=== PATIENT | female | born 1960 | race African-American/Black ===

== ENCOUNTER 2019-02-09 17:29 | Emergency (ER) | payer SELFPAY ==
--- NOTE | 2019-02-09 17:44 | PDOC ---
Rapid Medical Evaluation Time Seen by Provider: 02/09/19 17:38 Medical Evaluation: 02/09/19 17:39 I have performed a brief in-person evaluation of this patient. The patient presents with a chief complaint of: S/p slip and fall on wet floor in [employer] today, fell onto R side, no head injury or LOC. No back/hip pain. Ambulatory since fall. Not on blood thinners. Pertinent physical exam findings:LROM to RUE 2/2 pain I have ordered the following:XR shoulder/hand/wrist The patient will proceed to the ED for further evaluation. Discharge Disposition - Diagnosis Fall Qualifiers: Encounter type: initial encounter Qualified Code(s): W19.XXXA - Unspecified fall, initial encounter - Referrals - Patient Instructions - Post Discharge Activity
[2019-02-09 17:56] VITALS: BP 152/90; PULSE 94; TEMP 98.4; BMI 26.4
[2019-02-09] MEDS ORDERED: CYCLOBENZAPRINE HCL 10 MG TABLET (FP) PO ONE (18:06)
[2019-02-09] MEDS ORDERED: KETOROLAC TROMETHAMINE 60 MG/2 ML VIAL IM ONE (18:06)
[2019-02-09] MEDS ORDERED: KETOROLAC TROMETHAMINE 60 MG/2 ML VIAL ONE (18:12)
[2019-02-09] MEDS ORDERED: CYCLOBENZAPRINE HCL 10 MG TABLET (FP) ONE (18:13)
--- NOTE | 2019-02-09 18:24 | PDOC ---
History of Present Illness - General Chief Complaint: Injury Stated Complaint: FALL Time Seen by Provider: 02/09/19 17:38 History Source: Patient Exam Limitations: No Limitations Past History - Past Medical History Allergies/Adverse Reactions: Allergies Allergy/AdvReac Type Severity Reaction Status Date / Time No Known Allergies Allergy Verified 02/09/19 17:59 Home Medications: Ambulatory Orders Cyclobenzaprine HCl [Flexeril 10 mg] 10 mg PO TID PRN #21 tablet 02/09/19 COPD: No - Immunization History Immunization Up to Date: No - Suicide/Smoking/Psychosocial Hx Smoking History: Never smoked Have you smoked in the past 12 months: No Information on smoking cessation initiated: No Hx Alcohol Use: No Drug/Substance Use Hx: No *Physical Exam - Vital Signs Last Vital Signs Temp Pulse Resp BP Pulse Ox 98.4 F 94 H 16 152/90 99 02/09/19 17:41 02/09/19 17:41 02/09/19 17:41 02/09/19 17:41 02/09/19 17:41 - Physical Exam General Appearance: No: Apparent Distress HEENT: positive: Other (no head trauma) Neck: positive: Other (+TTP along R trapezius). negative: Tender midline Respiratory/Chest: positive: Lungs Clear, Normal Breath Sounds. negative: Respiratory Distress Cardiovascular: positive: Regular Rhythm, Regular Rate, S1, S2. negative: Murmur Extremity: positive: Other (decreased ROM of R shoulder, also limiting movement of rest of her RUE; no swelling, no ecchymosis, no joint deformity, no clavicular tenderness, RUE neurovascularly intact) Integumentary: positive: Normal Color. negative: Ecchymosis, Bruising Neurologic: positive: Alert, Normal Mood/Affect ED Treatment Course - RADIOLOGY Radiology Studies Ordered: Category Date Time Status ELBOW-RIGHT [RAD] Urgent Radiology 02/09/19 18:05 Ordered FOREARM- RIGHT [RAD] Stat Radiology 02/09/19 18:05 Ordered HUMERUS-RIGHT [RAD] Stat Radiology 02/09/19 18:05 Ordered - Medications Given in the ED: ED Medications Discontinued Medications Generic Name Dose Route Start Last Admin Trade Name Freq PRN Reason Stop Dose Admin Cyclobenzaprine HCl 10 mg 02/09/19 18:06 02/09/19 18:10 Flexeril - PO 02/09/19 18:07 10 mg ONCE ONE Administration Ketorolac Tromethamine 60 mg 02/09/19 18:06 02/09/19 18:10 Toradol Injection - IM 02/09/19 18:07 60 mg ONCE ONE Administration Medical Decision Making - Medical Decision Making 58 y/o F with no sig pmh presents s/p trip and fall at [employer] today. Patient slipped on ice and landed on R side, with most of impact along RUE. Is c /o R sided neck/R shoulder pain radiating down the arm. Mentions may have hit her head but uncertain as it happened so fast. Denies LOC, vomiting, visual/ gait changes, sob, cp, abd pain. Plan: Xrays to r/o fracture Toradol, Flexeril to help with pain 02/09/19 18:22 Xrays negative for fracture On reassessment, patient feeling much better, with better ROM of RUE Stable for dc 02/09/19 19:44 *DC/Admit/Observation/Transfer Diagnosis at time of Disposition: Fall Qualifiers: Encounter type: initial encounter Qualified Code(s): W19.XXXA - Unspecified fall, initial encounter - Discharge Dispostion Disposition: HOME Condition at time of disposition: Stable Decision to Admit order: No - Prescriptions Prescriptions: Cyclobenzaprine HCl [Flexeril 10 mg] 10 mg PO TID PRN #21 tablet PRN Reason: Muscle Spasms - Referrals - Patient Instructions Printed Discharge Instructions: DI for Muscle Strain, DI for Cervical Muscle Strain Additional Instructions: Thank you for choosing [facility]. It was a pleasure taking care of you. You may take Motrin 600 mg every 6 hours by mouth as needed for mild to moderate pain. Take Motrin with food. Take Flexeril as needed for muscle spasms. This medication can also make you drowsy so please be cautious with driving or performing heavy physical work. Follow-up with your doctor in 2-3 days Return to the Emergency Department if your symptoms worsen or persist, have weakness of extremities or other concerning symptoms. - Post Discharge Activity
== END 2019-02-09 19:50 | disposition home or self-care (01) ==
LOC: JERFT 17:29
PROC: 3E0233Z Introduction of Anti-inflammatory into Muscle, Percutaneous Approach (ICD-10-PCS; principal; 2019-02-09)
DX: Z04.3 Encounter for examination and observation following other accident (principal); W18.39XA Other fall on same level, initial encounter; Y93.89 Activity, other specified; Y92.512 Supermarket, store or market as the place of occurrence of the external cause
CPT/HCPCS: 72040-TC; 73030-TC-RT-FY; 73060-TC-RT-FY; 73070-TC-RT-FY; 73090-TC-RT-FY; 73110-TC-RT-FY; 73130-TC-RT-FY; 99281-25